=== PATIENT | female | born 1965 | race African-American/Black ===

== ENCOUNTER 2018-07-10 17:09 | Emergency (ER) | payer MEDICAID, OTHER ==
[~2018-07-10] VITALS: Ht 170.2 cm; Wt 72.6 kg
[2018-07-10 17:26] VITALS: BP 130/82
[2018-07-10 18:22] LABS: Urine Bacteria FEW /hpf (None Seen); Urine Blood Negative /uL (Negative); Urine Specific Gravity 1.002 (1.001-1.035); Urine WBC 2 /hpf (0 - 5)
== END 2018-07-11 02:15 | disposition left against medical advice (07) ==
LOC: EDBD 17:09 → MERGE 17:09 → ER 17:09
DX: R55 Syncope and collapse (principal); R53.1 Weakness; Z53.21 Procedure and treatment not carried out due to patient leaving prior to being seen by health care provider
CPT/HCPCS: 81001

== ENCOUNTER 2018-09-18 10:11 | Emergency (ER) | payer MEDICAID ==
[~2018-09-18] VITALS: Ht 165.1 cm; Wt 63.5 kg
[2018-09-18 10:23] VITALS: BP 103/74
[2018-09-18] MEDS ORDERED: LORazepam 0.5 MG TAB PO ONE (10:45)
[2018-09-18] MEDS ORDERED: ASPirin 81 mg TAB PO ONE (11:00)
[2018-09-18 11:35] LABS: Basophils # (auto) 0 uL; Basophils % (auto) 0.4 % (0.0-2.0); Eosinophils # (auto) 0 uL; Eosinophils % (auto) 0.6 % (0.0-7.0); Hematocrit 38.6 % (36.0-46.0); Hemoglobin 12.6 g/dL (12.2-16.2); Lymphocytes # (auto) 1.5 uL; Lymphocytes % (auto) 18.7 % (10.0-50.0); Mean Corpuscular Hgb Conc. 32.6 g/dL (32.0-36.0); Mean Corpuscular Volume 89.2 fL (80.0-100.0); Monocytes # (auto) 0.7 uL; Monocytes % (auto) 9.3 % (0.0-12.0); Neutrophils # (auto) 5.6 uL; Nucleated Red Blood Cells % 0.2 %; Platelet Count (auto) 323 10^3/uL (140-450); Red Blood Cells 4.33 10^6/uL (4.0-5.20); Red Cell Distribution Width 14.4 % (11.8-14.3); White Blood Cell 7.9 10^3/uL (4.4-10.8)
[2018-09-18 11:48] LABS: Albumin 3.3 g/dL (3.4-5.0); Anion Gap 6 (5-15); Blood Urea Nitrogen 8 mg/dL (7-18); Calcium 9.1 mg/dL (8.5-10.1); Carbon Dioxide 21 mmol/L (21-32); Chloride 114 mmol/L (98-107); Glucose 104 mg/dL (74-106); Potassium 3.5 mmol/L (3.5-5.1); Sodium 141 mmol/L (136-145)
[2018-09-18 11:51] LABS: Alanine Aminotransferase 39 U/L (13-56); Alkaline Phosphatase 101 U/L (45-117); Aspartate Aminotransferase 31 U/L (15-37); BUN/Creatinine Ratio 10.1; Bilirubin, Total 0.8 mg/dL (0.2-1.0); GFR African American > 60 mL/min; GFR Non-African American > 60 mL/min; Total Protein 7.7 g/dL (6.4-8.2)
[2018-09-18 11:52] LABS: INR 0.98 (0.9-1.15); Partial Thromboplastin Time 28.2 sec (23.78-33.04); Prothrombin Time 10.5 sec (9.27-12.13)
== END 2018-09-18 14:45 | disposition home or self-care (01) ==
LOC: ER 10:12
DX: R07.89 Other chest pain (principal); F41.9 Anxiety disorder, unspecified; F31.9 Bipolar disorder, unspecified; F20.9 Schizophrenia, unspecified; I10 Essential (primary) hypertension; Z88.8 Allergy status to other drugs, medicaments and biological substances
CPT/HCPCS: 36415; 71046; 80053; 84484; 85025; 85610; 85730; 93005

== ENCOUNTER → 2019-09-28 | Day surgery (SDC) | payer MEDICAID ==
[2019-09-25 11:29] LABS: Basophils # (auto) 0 uL; Basophils % (auto) 0.5 % (0.0-2.0); Eosinophils # (auto) 0 uL; Eosinophils % (auto) 0.8 % (0.0-7.0); Hematocrit 33.5 % (36.0-46.0); Lymphocytes # (auto) 1.3 uL; Lymphocytes % (auto) 23.6 % (10.0-50.0); Mean Corpuscular Hemoglobin 28.7 pg (28.0-32.0); Mean Corpuscular Hgb Conc. 32.7 g/dL (32.0-36.0); Mean Corpuscular Volume 87.8 fL (80.0-100.0); Monocytes # (auto) 0.4 uL; Monocytes % (auto) 6.6 % (0.0-12.0); Neutrophils # (auto) 3.8 uL; Neutrophils % (auto) 68.5 % (37.0-80.0); Platelet Count (auto) 243 10^3/uL (140-450); Red Blood Cells 3.82 10^6/uL (4.0-5.20); Red Cell Distribution Width 13.8 % (11.8-14.3); White Blood Cell 5.5 10^3/uL (4.4-10.8)
[2019-09-25 11:43] LABS: Urine Bacteria FEW /hpf (None Seen); Urine Blood TRACE /uL (Negative); Urine Mucus FEW (None Seen); Urine Specific Gravity 1.016 (1.001-1.035); Urine WBC 39 /hpf (0 - 5); Urine WBC Clumps PRESENT /hpf (None Seen)
[2019-09-25 11:52] LABS: Albumin 3.8 g/dL (3.4-5.0); Calcium 9.1 mg/dL (8.5-10.1); Potassium 3.8 mmol/L (3.5-5.1)
[2019-09-25 11:55] LABS: BUN/Creatinine Ratio 15.1; Bilirubin, Total 1.2 mg/dL (0.2-1.0); INR 1.01 (0.9-1.15); Partial Thromboplastin Time 26.5 sec (23.64-32.05); Total Protein 7.6 g/dL (6.4-8.2)
[~2019-09-28] VITALS: Ht 165.1 cm; Wt 63.5 kg
[~2019-09-28] MED LIST: ACCU-CHEK COMFORT CURVE STRIP VI ONE; CIPROFLOXACIN 400MG/200ML 200 ML IV ONE; GABA-339 PO; HYDR-531 PO; HYDR10TA26 PO; HYDROmorphone HCL 2 MG/ML VL IV PRN; IOHEXOL 300 MG/ML 100ML BOTTLE IJ ONE; LURA80TA PO; MIDAZOLAM HCL 1MG/1ML-2 ML VIAL ONE; MORP30TA PO; MORPHINE SULFATE 4 MG/ML SYR/VIAL IV PRN; ONDANSETRON HCL 4 MG/2 ML VIAL ONE; PREG150C PO; PROPOFOL 10 MG/ML 20 ML IV ONE; SODIUM CHLORIDE LOCK 10 ML ONE; fentaNYL CITRATE 100 MCG/2 ML VL IV PRN; fentaNYL CITRATE 100 MCG/2 ML VL ONE
[2019-09-28 11:12] VITALS: BP 141/85
== END | disposition home or self-care (01) ==
LOC: SUR 06:56
PROVIDERS: ATTEND Urology
DX: N20.0 Calculus of kidney (principal); K21.9 Gastro-esophageal reflux disease without esophagitis; E11.22 Type 2 diabetes mellitus with diabetic chronic kidney disease; I12.9 Hypertensive chronic kidney disease with stage 1 through stage 4 chronic kidney disease, or unspecified chronic kidney disease; N18.2 Chronic kidney disease, stage 2 (mild); D64.9 Anemia, unspecified; F31.9 Bipolar disorder, unspecified; G56.03 Carpal tunnel syndrome, bilateral upper limbs; M48.02 Spinal stenosis, cervical region; G89.29 Other chronic pain; D50.9 Iron deficiency anemia, unspecified; F25.0 Schizoaffective disorder, bipolar type; F41.9 Anxiety disorder, unspecified; Z88.1 Allergy status to other antibiotic agents; Z88.8 Allergy status to other drugs, medicaments and biological substances; Z98.890 Other specified postprocedural states; Z18.89 Other specified retained foreign body fragments; Z87.39 Personal history of other diseases of the musculoskeletal system and connective tissue; Z86.19 Personal history of other infectious and parasitic diseases; Z86.39 Personal history of other endocrine, nutritional and metabolic disease; Z87.898 Personal history of other specified conditions; Z79.899 Other long term (current) drug therapy
CPT/HCPCS: 36415; 52353; 74018; 80053; 81001; 82962; 85025; 85610; 85730; 88300; 93005; C1769; J0744; J2250; J2405; J2704; J3010; Q9967; 76000

== ENCOUNTER 2019-11-05 15:45 | Emergency (ER) | payer MEDICAID ==
[~2019-11-05] VITALS: Ht 165.1 cm; Wt 65.8 kg
[~2019-11-05 15:45] MED LIST changes: -ACCU-CHEK COMFORT CURVE STRIP VI ONE; -CIPROFLOXACIN 400MG/200ML 200 ML IV ONE; -HYDROmorphone HCL 2 MG/ML VL IV PRN; -IOHEXOL 300 MG/ML 100ML BOTTLE IJ ONE; -MIDAZOLAM HCL 1MG/1ML-2 ML VIAL ONE; -MORPHINE SULFATE 4 MG/ML SYR/VIAL IV PRN; -ONDANSETRON HCL 4 MG/2 ML VIAL ONE; -PROPOFOL 10 MG/ML 20 ML IV ONE; -SODIUM CHLORIDE LOCK 10 ML ONE; -fentaNYL CITRATE 100 MCG/2 ML VL IV PRN; -fentaNYL CITRATE 100 MCG/2 ML VL ONE
[2019-11-05] MEDS ORDERED: diphenhdrAMINE HCL 50 MG/1 ML VL IM ONE (16:15)
[2019-11-05] MEDS ORDERED: LORazepam 2MG/ML-1ML VIAL IM ONE (16:15)
[2019-11-05 16:38] VITALS: BP 195/109
== END 2019-11-05 17:31 | disposition home or self-care (01) ==
LOC: ER 15:45
DX: M26.609 Unspecified temporomandibular joint disorder, unspecified side (principal); F41.9 Anxiety disorder, unspecified; M62.838 Other muscle spasm; G24.9 Dystonia, unspecified; R51 Headache; I10 Essential (primary) hypertension; Z90.49 Acquired absence of other specified parts of digestive tract; Z88.1 Allergy status to other antibiotic agents; Z88.8 Allergy status to other drugs, medicaments and biological substances
CPT/HCPCS: 70486; 96372; 99284; J1200; J2060

== ENCOUNTER 2021-09-21 12:33 | Emergency (ER) | payer MEDICAID ==
[~2021-09-21] VITALS: Ht 165.1 cm; Wt 64.4 kg
[2021-09-21 13:49] LABS: Basophils # (auto) 0 10 ^3/uL (0-0.2); Basophils % (auto) 0.5 % (0.0-2.0); Eosinophils # (auto) 0 10 ^3/uL (0-0.8); Eosinophils % (auto) 0.8 % (0.0-7.0); Hematocrit 37.7 % (36.0-46.0); Hemoglobin 12.5 g/dL (12.2-16.2); Lymphocytes # (auto) 0.9 10 ^3/uL (0.4-5.4); Lymphocytes % (auto) 18.2 % (10.0-50.0); Mean Corpuscular Hemoglobin 28.5 pg (28.0-32.0); Mean Corpuscular Hgb Conc. 33.1 g/dL (32.0-36.0); Monocytes # (auto) 0.3 10 ^3/uL (0-1.3); Monocytes % (auto) 4.9 % (0.0-12.0); Neutrophils # (auto) 3.9 10 ^3/uL (1.6-8.6); Neutrophils % (auto) 75.6 % (37.0-80.0); Nucleated Red Blood Cells % 0.1 %; Red Blood Cells 4.39 10^6/uL (4.0-5.20); Red Cell Distribution Width 13.3 % (11.8-14.3); White Blood Cell 5.2 10^3/uL (4.4-10.8)
[2021-09-21 14:06] LABS: Albumin 3.8 g/dL (3.4-5.0); Calcium 9.7 mg/dL (8.5-10.1)
[2021-09-21 14:12] LABS: BUN/Creatinine Ratio 13.6; Bilirubin, Total 0.5 mg/dL (0.2-1.0); Total Protein 8.1 g/dL (6.4-8.2)
[2021-09-21 14:35] VITALS: BP 108/68
== END 2021-09-21 14:38 | disposition home or self-care (01) ==
LOC: ER 12:38
DX: R07.89 Other chest pain (principal); E11.9 Type 2 diabetes mellitus without complications; E78.5 Hyperlipidemia, unspecified; I10 Essential (primary) hypertension; Z90.49 Acquired absence of other specified parts of digestive tract; Z88.1 Allergy status to other antibiotic agents
CPT/HCPCS: 36415; 71046; 80053; 84484; 85025; 96372

== ENCOUNTER 2025-03-18 12:08 | Inpatient (IN) | payer MEDICARE, MEDICAID ==
[~2025-03-18] VITALS: Ht 165.1 cm; Wt 64.6 kg
[~2025-03-18 12:08] MED LIST changes: +HYDR-2792 PO; -HYDR10TA26 PO; -LURA80TA PO; +LURA80TA2 PO
--- NOTE | 2025-03-18 12:16 | ED.PDOC ---
HPI (NEURO) HPI Comments 59-year-old female brought in by EMS presents with a chief complaint of seizure- activity at home lasting about 1 minute. Per EMS, came home and found patient convulsing in bed with her eyes rolled back and foaming at the mouth. Patient has never had a seizure before. Patient does not remember the event. Patient had no trauma, oral trauma, or falls from the seizure. Patient is back to baseline mental status. Patient is on pain management from a lower back surgery that she had. PMHx: DM, Anxiety, Depression, Schizophrenia, HLD, HTN, Bipolar Disorder, chronic pain follows with pain management. PSHx: Lumbar Back Surgery, Hernia Repair, Cholecystectomy ELL[place]: seizure like. HPI: Poor Historian. No oral trauma, no incontinence, no history of seizure, back to her baseline on arrival. Patient does not recall what happened. No fall or trauma. This happened while she was in bed. This was witnessed by her .. Past Medical History: Past Surgical History: REVIEW OF SYSTEMS: CONSTITUTIONAL: Denies acute: fever, diaphoresis, chills, generalized weakness. HEAD: Denies acute: headache, photophobia Eyes: Denies acute: Double vision, vision loss, eye pain, eye discharge. EARS: Denies acute: tinnitus, hearing loss, ear discharge, ear pain, THROAT: Denies acute: sore throat, swelling, difficulty swallowing , pain with swallowing, change in voice. NECK: Denies acute: neck pain, neck swelling, stiff neck. HEART: Denies acute : chest pain, palpitations, LUNGS: Denies acute: SOB, wheezing, cough, hemoptysis ABDOMEN: Denies acute: abdominal pain, Nausea, Vomiting, diarrhea, melena , hematemesis, hematochezia SKIN: Denies acute: rash, redness, lesions, itchiness. EXTREMITIES: Denies acute: calf pain, numbness, tingling, weakness, denies pain in extremity. Denies acute: Low back pain. Neuro: Denies acute: focal neurological deficit, motor or sensory focal neurological deficit, , dizziness, change in mental status, loss of bowel or bladder function, cauda equina like symptoms. : Denies acute: dysuria, hematuria, flank pain, increase in urinary frequency. PSYCH: Denies acute: hallucination, suicidal ideation, homicidal ideation. FEMALE: Denies acute: abnormal vaginal bleeding, foul odor, unusual discharge. PHYSICAL EXAM: General: -----mild---acute distress, awake and alert. Head: normocephalic, atraumatic. Neck: supple, trachea is midline, no swelling. Throat: Normal phonation. Eyes:, no erythema, no purulent discharge, no proptosis, no icterus. Heart: regular rate, regular rhythm, no significant murmur appreciated. Lungs: no apparent respiratory distress, Able to speak in full sentences. No wheezing, no rhonchi, no crackles. No stridors Clear to auscultation bilaterally. Abdomen: non tender to palpation, non distended, soft, no guarding, no rebound, + bowel sounds. Neuro: Awake, Alert, oriented to name, self, situation, follows commands GCS=15. Speech is normal. Skin: no petechia, no purpura, no cyanosis, non-pale, not jaundice. Lower extremities: --no - Pitting edema no deformity, no focal swelling, no calf TTP. Makes eye contact. moves all four extremities. Face: no apparent facial droop. Stroke: finger to nose cerebellar testing is intact. No pronator drift. PERRLA, EOM-I CN 2-12 are grossly intact, No nystagmus. No nuchal rigidity, Kernig's sign, Brudzinski's sign, no meningeal signs. ED COURSE: DISCLAIMER: This medical document was created using an electronic medical record system with voice recognition software and computerized dictation system. Although this document has been carefully reviewed, there might still be some phonetic and typographical errors. Occasional wrong-word or "sound-alike" substitutions may have occurred due to the inherent limitations of voice recognition software. These areas are purely typographical due to imperfections of the software programs and do not reflect any compromise in the patient's medical care. Please read the chart carefully and recognize, using context, where these substitutions have occurred. 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 Was a procedure done?: No Differential Diagnosis (SZ) Seizure: Other (SEIZUREDDX include not limited to CVA, cerebellar ischemia/infarct, carotid stenosis, vertebral/carotid artery dissection,, vertebrobasillary insufficiency, Intracranial mass/infection/bleed, encephalopathy, elctrolyte abnormality, thyroid disease, multiple sclerosis, hypoglycemia, drug toxicity, cardiac arrhythmia, sub-theraputic anti-convulsion medications, known seizure disorder, pseudo-seizure.) X-Ray, Labs, Meds, VS Vital Signs Date Time Temp Pulse Resp B/P (MAP) Pulse Ox O2 Delivery O2 Flow Rate FiO2 03/18/25 15:18 97.5 71 18 165/105 (125) 100 97.5 03/18/25 13:08 79 19 100 Room Air 03/18/25 13:08 97.8 79 19 152/88 (109) 100 97.8 03/18/25 12:17 97.9 98 15 166/91 (116) 99 97.9 03/18/25 12:17 87 Lab Test 03/18/25 14:39 03/18/25 13:24 03/18/25 12:56 Range/Units Lactic Acid Level 3.6 *H 4.8 *H 0.4-2.0 mmol/L Troponin I High Sensitivity 6 5 </=34 ng/L Urine Color Light-yellow Yellow Urine Clarity Turbid H Clear Urine pH 7.5 5.0-9.0 Urine Specific [place] 1.009 1.001-1.035 Urine Protein Trace H Negative Urine Ketones Negative Negative Urine Blood Negative Negative /uL Urine Nitrite Negative Negative Urine Bilirubin Negative Negative Urine Urobilinogen Normal Negative mg/dL Urine Leukocyte Esterase Negative Negative /uL Urine RBC 1 0 - 4 /hpf Urine Microscopic WBC 1 0-5 /HPF Urine Squamous Epithelial Cells Few <5 /hpf Urine Bacteria None seen None Seen /hpf Urine Glucose Normal Normal mg/dL Urine Opiates Screen Neg NEGATIVE Urine Fentanyl Screen Neg NEGATIVE Urine Barbiturates Screen Neg NEGATIVE Urine Phencyclidine Screen Neg NEGATIVE Urine Amphetamines Screen Neg NEGATIVE Urine Benzodiazepines Screen Neg NEGATIVE Urine Cocaine Screen Neg NEGATIVE Urine Cannabinoids Screen Neg NEGATIVE White Blood Count 5.1 4.4-10.8 10^3/uL Red Blood Count 3.82 L 4.0-5.20 10^6/uL Hemoglobin 11.7 L 12.2-16.2 g/dL Hematocrit 35.4 L 36.0-46.0 % Mean Corpuscular Volume 92.6 80.0-100.0 fL Mean Corpuscular Hemoglobin 30.5 28.0-32.0 pg Mean Corpuscular Hemoglobin Concent 33.0 32.0-36.0 g/dL Red Cell Distribution Width 13.3 11.8-14.3 % Platelet Count 196 140-450 10^3/uL Mean Platelet Volume 9.1 6.9-10.8 fL Neutrophils (%) (Auto) 74.7 37.0-80.0 % Lymphocytes (%) (Auto) 18.2 10.0-50.0 % Monocytes (%) (Auto) 6.3 0.0-12.0 % Eosinophils (%) (Auto) 0.4 0.0-7.0 % Basophils (%) (Auto) 0.4 0.0-2.0 % Neutrophils # (Auto) 3.8 1.6-8.6 10 ^3/uL Lymphocytes # (Auto) 0.9 0.4-5.4 10 ^3/uL Monocytes # (Auto) 0.3 0-1.3 10 ^3/uL Eosinophils # (Auto) 0 0-0.8 10 ^3/uL Basophils # (Auto) 0 0-0.2 10 ^3/uL Nucleated Red Blood Cells 0.1 % Sodium Level 143 136-145 mmol/L Potassium Level 3.6 3.5-5.1 mmol/L Chloride Level 109 H 98-107 mmol/L Carbon Dioxide Level 18 L 20-31 mmol/L Anion Gap 16 H 5-15 Blood Urea Nitrogen 8 L 9-23 mg/dL Creatinine 0.80 0.550-1.02 mg/dL Glomerular Filtration Rate Calc 85 >90 mL/min BUN/Creatinine Ratio 10.0 10.0-20.0 Serum Glucose 119 H 74-106 mg/dL Calcium Level 9.8 8.7-10.4 mg/dL Magnesium Level 1.7 1.6-2.6 mg/dL Total Bilirubin 1.7 H 0.2-1.0 mg/dL Aspartate Amino Transferase (AST) 36 13-40 U/L Alanine Aminotransferase (ALT) 31 7-40 U/L Alkaline Phosphatase 68 46-116 U/L Total Protein 6.8 5.7-8.2 g/dL Albumin 4.3 3.2-4.8 g/dL Time of 1ST Reevaluation: 12:40 Reevaluation 1ST: Unchanged Patient Education/Counseling: Diagnosis, Treatment Family Education/Counseling: No Family Present Comments MDM: patient presented with the above HPI.---seizure---workup was initiated. patient was found with the above mentioned diagnosis. the following medications were ordered: please refer to order lists of meds and tests obtained by myself Dr. Hughes. Patient ED course and VS have been stabilized. Patient has been reassessed in the ED and remained in a stable condition. Pertinent incidental findings were discussed with the patient and/or family. Patient/family voices understanding and is agreeable with plan. Patient has been observed in the ED adequate length of time to insure improvement/stability. Escalation of care considered: Consideration of escalation to observation or admission Patient had no seizure activity here in the ED without any seizure medications. Patient was ADMITTED to the medicine team for further evaluation and treatment of their presentation. All the reports of any imaging studies that were ordered by myself were reviewed by myself. Departure 1 Departure Time of Disposition: 12:24 Impression: Primary Impression: Seizure-like activity Additional Impression: Elevated lactic acid level Disposition: ADMITTED INPATIENT Admit to: Tele Condition: Guarded Discharged With: Self Critical Care Note Critical Care Time?: No I personally scribed for DIANA HUGHES DO ([email or web address]) on 03/18/25 at 12:16. Electronically submitted by Juan Ramon Ignacio ([email or web address]). DIANA HUGHES DO Mar 18, 2025 12:16
[2025-03-18] MEDS: SODIUM CHLORIDE 0.9% 1,000 ML IV ONE ×2 (13:13→13:43)
[2025-03-18 13:14] LABS: Hematocrit 35.4 % (36.0-46.0); Hemoglobin 11.7 g/dL (12.2-16.2); Mean Corpuscular Hemoglobin 30.5 pg (28.0-32.0); Mean Corpuscular Volume 92.6 fL (80.0-100.0); Nucleated Red Blood Cells % 0.1 %
[2025-03-18 13:31] LABS: Alanine Aminotransferase 31 U/L (7-40); Albumin 4.3 g/dL (3.2-4.8); Alkaline Phosphatase 68 U/L (46-116); Anion Gap 16 (5-15); BUN/Creatinine Ratio 10.0 (10.0-20.0); Calcium 9.8 mg/dL (8.7-10.4); Magnesium 1.7 mg/dL (1.6-2.6); Potassium 3.6 mmol/L (3.5-5.1); Sodium 143 mmol/L (136-145); Total Protein 6.8 g/dL (5.7-8.2)
[2025-03-18 13:32] LABS: Bilirubin, Total 1.7 mg/dL (0.2-1.0); Blood Urea Nitrogen 8 mg/dL (9-23); Carbon Dioxide 18 mmol/L (20-31); Chloride 109 mmol/L (98-107); Glucose 119 mg/dL (74-106)
[2025-03-18 13:33] LABS: Lactic Acid w/Reflex 4.8 mmol/L (0.4-2.0)
--- NOTE | 2025-03-18 13:40 | DVH ---
INDICATION: SEIZURE LIKE ACTIVITY TECHNIQUE: Frontal view of the chest. COMPARISON: None FINDINGS: . The heart and mediastinal contours are grossly unremarkable. There is no evidence of pleural disea se. The lungs are clear. The bony structures of the chest are intact without fracture. IMPRESSION: 1. No evidence of acute disease.
[2025-03-18 15:37] LABS: Urine Protein, UAD TRACE (Negative)
[2025-03-18 15:38] LABS: Amphetamine Screen, Urine Neg (NEGATIVE)
[2025-03-18 15:39] LABS: Barbiturate Scree,Urine Neg (NEGATIVE); Benzodiazephine Screen, Urine Neg (NEGATIVE); Cannabinoid Screen, Urine Neg (NEGATIVE); Cocaine Screen, Urine Neg (NEGATIVE); Opiate Scree,Urine Neg (NEGATIVE); Phencyclidine Screen, Urine Neg (NEGATIVE)
[2025-03-18] MEDS ORDERED: ACETAMINOPHEN 325 MG TAB PO PRN (16:45)
[2025-03-18] MEDS ORDERED: ONDANSETRON HCL 4 MG/2 ML VIAL IV PRN (16:45)
--- NOTE | 2025-03-18 16:48 | DVHHP2 ---
History of Present Illness Reason for Visit: SEIZURE History of Present Illness 59-year-old female presents for evaluation of seizure activity. Patient is lb reports patient having a seizure-like episode where she was shaking and her eyes rolled back lasting approximately 1 minute. Patient is currently alert oriented x4. Does not recall any of the events. No oral trauma no incontinence. No previous history of seizures. Currently denies headache or blurred vision. No unilateral weakness. No fever or chills. No other acute complaints reported. Past Medical History Schizophrenia, dyslipidemia, hypertension, bipolar, diabetes mellitus, depression Past Surgical History Back surgery, hernia repair Family History Noncontributory Smoke: No ALCOHOL: none Drugs: None Lives: with Family Review of Systems Review of Systems Review of systems are currently negative otherwise addressed in HPI. Allergies: Coded Allergies: Amoxicillin (Verified Allergy, Unknown, 09/25/19) Atorvastatin (Verified Allergy, Unknown, 09/25/19) Lisinopril (Verified Allergy, Unknown, 09/25/19) Medications Current Medications Medications Dose Ordered Sig/Murray Route Start Time Stop Time Status Last Admin Dose Admin Nifedipine 30 mg DAILY PO 03/19/25 10:00 UNV Quetiapine Fumarate 200 mg HS PO 03/18/25 22:00 UNV Divalproex Sodium 500 mg DAILY PO 03/19/25 10:00 UNV Gabapentin 600 mg TID PO 03/18/25 22:00 UNV Hydralazine HCl 25 mg Q12HR PO 03/18/25 22:00 UNV Losartan Potassium 50 mg DAILY PO 03/19/25 10:00 UNV Hydrochlorothiazide 12.5 mg DAILY PO 03/19/25 10:00 UNV Acetaminophen/ Hydrocodone Bitart 1 tab Q4HP PRN PO 03/18/25 16:45 UNV Ondansetron HCl 4 mg Q4HP PRN IV 03/18/25 16:45 UNV Enoxaparin Sodium 40 mg DAILY SC 03/19/25 10:00 UNV Acetaminophen 650 mg Q6HP PRN PO 03/18/25 16:45 UNV Exam Vital Signs Vital Signs Date Time Temp Pulse Resp B/P (MAP) Pulse Ox O2 Delivery O2 Flow Rate FiO2 03/18/25 15:18 97.5 71 18 165/105 (125) 100 97.5 03/18/25 13:08 Room Air Exam Gen: 59-year-old female in no apparent distress. Skin: Warm, dry, normal color and texture, no rash. HEENT: Normocephalic atraumatic, mucous membranes moist and pink. Neck: Cervical and supraclavicular nodes normal without enlargement, trachea is midline, thyroid gland is normal without masses. Pulmonary: Clear to auscultation and percussion bilaterally. Cardiac: Regular rate and rhythm. No murmur Abdomen: Soft, nontender, nondistended, bowel sounds present all 4 quadrants, no guarding, no rigidity, no organomegaly. Extremities: No cyanosis, clubbing, no edema Neuro: Cranial nerves II through XII grossly intact, normal affect and speech, no focal motor deficits. Labs/Xrays Labs Test 03/18/25 16:26 03/18/25 13:24 03/18/25 12:56 Range/Units Urine Color Light-yellow Yellow Urine Clarity Turbid H Clear Urine pH 7.5 5.0-9.0 Urine Specific [place] 1.009 1.001-1.035 Urine Protein Trace H Negative Urine Ketones Negative Negative Urine Blood Negative Negative /uL Urine Nitrite Negative Negative Urine Bilirubin Negative Negative Urine Urobilinogen Normal Negative mg/dL Urine Leukocyte Esterase Negative Negative /uL Urine RBC 1 0 - 4 /hpf Urine Microscopic WBC 1 0-5 /HPF Urine Squamous Epithelial Cells Few <5 /hpf Urine Bacteria None seen None Seen /hpf Urine Glucose Normal Normal mg/dL Urine Opiates Screen Neg NEGATIVE Urine Fentanyl Screen Neg NEGATIVE Urine Barbiturates Screen Neg NEGATIVE Urine Phencyclidine Screen Neg NEGATIVE Urine Amphetamines Screen Neg NEGATIVE Urine Benzodiazepines Screen Neg NEGATIVE Urine Cocaine Screen Neg NEGATIVE Urine Cannabinoids Screen Neg NEGATIVE White Blood Count 5.1 4.4-10.8 10^3/uL Red Blood Count 3.82 L 4.0-5.20 10^6/uL Hemoglobin 11.7 L 12.2-16.2 g/dL Hematocrit 35.4 L 36.0-46.0 % Mean Corpuscular Volume 92.6 80.0-100.0 fL Mean Corpuscular Hemoglobin 30.5 28.0-32.0 pg Mean Corpuscular Hemoglobin Concent 33.0 32.0-36.0 g/dL Red Cell Distribution Width 13.3 11.8-14.3 % Platelet Count 196 140-450 10^3/uL Mean Platelet Volume 9.1 6.9-10.8 fL Neutrophils (%) (Auto) 74.7 37.0-80.0 % Lymphocytes (%) (Auto) 18.2 10.0-50.0 % Monocytes (%) (Auto) 6.3 0.0-12.0 % Eosinophils (%) (Auto) 0.4 0.0-7.0 % Basophils (%) (Auto) 0.4 0.0-2.0 % Neutrophils # (Auto) 3.8 1.6-8.6 10 ^3/uL Lymphocytes # (Auto) 0.9 0.4-5.4 10 ^3/uL Monocytes # (Auto) 0.3 0-1.3 10 ^3/uL Eosinophils # (Auto) 0 0-0.8 10 ^3/uL Basophils # (Auto) 0 0-0.2 10 ^3/uL Nucleated Red Blood Cells 0.1 % Sodium Level 143 136-145 mmol/L Potassium Level 3.6 3.5-5.1 mmol/L Chloride Level 109 H 98-107 mmol/L Carbon Dioxide Level 18 L 20-31 mmol/L Anion Gap 16 H 5-15 Blood Urea Nitrogen 8 L 9-23 mg/dL Creatinine 0.80 0.550-1.02 mg/dL Glomerular Filtration Rate Calc 85 >90 mL/min BUN/Creatinine Ratio 10.0 10.0-20.0 Serum Glucose 119 H 74-106 mg/dL Calcium Level 9.8 8.7-10.4 mg/dL Magnesium Level 1.7 1.6-2.6 mg/dL Total Bilirubin 1.7 H 0.2-1.0 mg/dL Aspartate Amino Transferase (AST) 36 13-40 U/L Alanine Aminotransferase (ALT) 31 7-40 U/L Alkaline Phosphatase 68 46-116 U/L Total Protein 6.8 5.7-8.2 g/dL Albumin 4.3 3.2-4.8 g/dL SEPSIS Sepsis Screen Date sepsis recognized/suspect: Mar 18, 2025 Time Sepsis recognized/suspect: 1214 Recent Procedure: No On Antibiotic Therapy: No Respiratory Rate >20: No Heart Rate >90: Yes Temp<36 C (96.8 F) or >38.3 C: No SBP <90 or MAP <65 mmHG: No New Acute Mental Status Change: No Is the patient on CPAP, BIPAP,: No 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 ) Seizure Precautions (03/18/25 ) Electrocardigram (03/18/25 12:11) Troponin-I Hs (03/18/25 15:11) Head Without Contrast (03/18/25 12:17) Chest Portable (03/18/25 12:17) Lactic Acid W/ Reflex Order (03/18/25 15:00) Admit (03/18/25 15:23) Nifedipine Er (Procardia Xl (Time-Releas (03/19/25 10:00) Quetiapine Fumarate Tablet (Seroquel Tab (03/18/25 22:00) Divalproex Dr Tablet (Depakote "Dr" Tabl (03/19/25 10:00) Gabapentin Capsule (Neurontin Capsule) (03/18/25 22:00) Hydralazine Hcl Tablet (Apresoline Table (03/18/25 22:00) Losartan Tablet (Cozaar Tablet) (03/19/25 10:00) Hydrochlorothiazide Tablet (Hydrochlorot (03/19/25 10:00) * Neurology Consult (03/18/25 16:34) Brain Head Wo Contrast (03/18/25 16:34) Hydrocodone-Acet 5/325mg Tab (Cades 5/32 (03/18/25 16:45) Ondansetron Hcl (Zofran) (03/18/25 16:45) Enoxaparin Sodium (Lovenox) (03/19/25 10:00) Complete Blood Count (03/19/25 04:00) Comprehensive Metabolic Panel (03/19/25 04:00) Cardiac Diet-2gna,Lofat,Lochol (03/18/25 Dinner) Condition: Stable (03/18/25 16:34) Acetaminophen Tablet (Tylenol Tablet) (03/18/25 16:45) Bedrest With Bathroom Privileg (03/18/25 16:34) Blood Culture (03/18/25 16:34) Vital Signs Date Time Temp Pulse Resp B/P (MAP) Pulse Ox O2 Delivery O2 Flow Rate FiO2 03/18/25 15:18 97.5 71 18 165/105 (125) 100 97.5 03/18/25 13:08 79 19 100 Room Air 03/18/25 13:08 97.8 79 19 152/88 (109) 100 97.8 03/18/25 12:17 97.9 98 15 166/91 (116) 99 97.9 03/18/25 12:17 87 Laboratory Tests Test 03/18/25 12:56 03/18/25 14:39 03/18/25 16:26 Lactic Acid Level 4.8 mmol/L (0.4-2.0) *H 3.6 mmol/L (0.4-2.0) *H Pending White Blood Count 5.1 10^3/uL (4.4-10.8) Medications Medications Dose Ordered Sig/Murray Route Start Time Stop Time Status Last Admin Dose Admin Sodium Chloride 1,000 ml @ 1,000 mls/hr Q1H ONCE IV 03/18/25 12:15 03/18/25 13:14 DC 03/18/25 13:13 1,000 MLS/HR Sodium Chloride 1,000 ml @ 1,000 mls/hr Q1H ONCE IV 03/18/25 13:45 03/18/25 14:44 DC 03/18/25 13:43 1,000 MLS/HR Assessment/Plan Assessment/Plan Assessment Seizure activity, new onset Lactic acidosis Accelerated hypertension Plan Admit the patient to [facility] to the hospitalist Nephrology consultation MRI of the brain pending Resume home medications Continue treatment per orders. Plan discussed with: Patient My Orders Orders - FABIOLA MELCHOR AGACNP Procedure Category Date Status Time Admit ADMIT 03/18/25 Transmitted 15:23 Nifedipine Er PHA 03/19/25 Logged (Procardia Xl 10:00 Quetiapine Fumarate PHA 03/18/25 Logged Tablet (Seroquel Tab 22:[address] Tablet PHA 03/19/25 Logged (Depakote "Dr" Tabl 10:00 Gabapentin Capsule PHA 03/18/25 Logged (Neurontin Capsule) 22:00 Hydralazine Hcl PHA 03/18/25 Logged Tablet (Apresoline 22:00 Losartan Tablet PHA 03/19/25 Logged (Cozaar Tablet) 10:00 Hydrochlorothiazide PHA 03/19/25 Logged Tablet (Hydrochlorot 10:00 * Neurology Consult CONS 03/18/25 Transmitted 16:34 Brain Head Wo Contrast MRI 03/18/25 Logged 16:34 Hydrocodone-Acet PHA 03/18/25 Logged 5/325mg Tab (Cades 16:45 Ondansetron Hcl PHA 03/18/25 Logged (Zofran) 16:45 Enoxaparin Sodium PHA 03/19/25 Logged (Lovenox) 10:00 Complete Blood Count LAB 03/19/25 Verified 04:00 Comprehensive LAB 03/19/25 Verified Metabolic Panel 04:00 Cardiac DIET 03/18/25 Transmitted Diet-2gna,Lofat,Lochol Dinner Condition: Stable ANNA 03/18/25 In Process 16:34 Acetaminophen Tablet PHA 03/18/25 Logged (Tylenol Tablet) 16:45 Bedrest With Bathroom ANNA 03/18/25 In Process Privileg 16:34 Blood Culture JOSE 03/18/25 Uncollected 16:34 Date of Service: Mar 18, 2025 Billing Provider: FABIOLA MELCHOR Common Visit Codes: [id number] INP/OBS CARE (HIGH) FABIOLA MELCHOR Mar 18, 2025 16:48
[2025-03-18 17:44] VITALS: BP 151/99; PULSE 69; RESP 17; TEMP 97.5; O2SAT 100
--- NOTE | 2025-03-18 18:46 | ECG ---
[facility] Test Date: 2025-03-18 Test Time: 12:15:23 Pat Name: SINDY ELLINGTON Department: ED Room: 0240 A Gender: F [employer] Developer: faith : 1965 Requested By: DIANA PETIT Order Number: [id number] Reading MD: Ronaldo Bueno Measurements Intervals [place] Rate: 87 P: 30 NV: 157 QRS: 9 QRSD: 82 T: 4 QT: 390 QTc: 470 Interpretive Statements Sinus rhythm Probable left atrial enlargement Low voltage, precordial leads Electronically Signed On 03-24-2025 17:41:57 PDT by Ronaldo Bueno Please click the below link to view image of tracing.
[2025-03-18] MEDS: HYDROcodone-ACET 5/325MG TAB PO PRN (19:07)
[2025-03-18 20:00] VITALS: PULSE 82; RESP 20; O2SAT 99
[2025-03-18 21:00] VITALS: BP 138/82; PULSE 82; RESP 20; TEMP 98.2; O2SAT 99
--- NOTE | 2025-03-18 21:28 | DVH ---
Procedure: CT HEAD WITHOUT CONTRAST Study Date and Requested Time: 03/18/2025 01:09 PM History: SEIZURE LIKE ACTIVITY Comparison: None Dose: CTDI: 48.84 mGy DLP: 685.54 mGycm Technique: Multiplanar images obtained through the brain without intravenous contrast. Findings: Mild frontoparietal predominant brain Atrophy. Mild chronic small vessel ischemic changes. No hemorrhages, masses, mass effect, midline shift, herniation or cytotoxic edema following a large v ascular territory. No intra-axial or extra-axial fluid collections. No evidence of hydrocephalus. The basal cisterns are patent. The pituitary gland, sella and parasellar regions are unremarkable. The cerebellar tonsils are in nor mal position. The cerebellum is unremarkable. The partially visualized orbits and globes are unremarkable. Mild mucoperiosteal thickening of the po sterior ethmoid air cells. Otherwise, paranasal sinuses and mastoids are clear. There are no worriso me calvarial lesions. Impression: No evidence of acute intracranial abnormality. If symptoms persist, consider MRI for further evaluati on.
[2025-03-18] MEDS: GABAPENTIN 300 MG CAP PO SCH (22:23)
[2025-03-19] VITALS (7 sets, daily range): BP systolic 98–127; BP diastolic 64–84; PULSE 80–95; RESP 16–22; TEMP 97.7–98.2; O2SAT 98–100
[2025-03-19 07:03] LABS: Alanine Aminotransferase 26 U/L (7-40); Albumin 4.1 g/dL (3.2-4.8); Alkaline Phosphatase 65 U/L (46-116); Anion Gap 11 (5-15); BUN/Creatinine Ratio 10.1 (10.0-20.0); Calcium 9.4 mg/dL (8.7-10.4); Carbon Dioxide 23 mmol/L (20-31); Glucose 92 mg/dL (74-106); Potassium 3.5 mmol/L (3.5-5.1); Sodium 142 mmol/L (136-145); Total Protein 6.4 g/dL (5.7-8.2)
[2025-03-19 07:09] LABS: Bilirubin, Total 1.9 mg/dL (0.2-1.0); Blood Urea Nitrogen 8 mg/dL (9-23); Chloride 108 mmol/L (98-107)
[2025-03-19] MEDS: LACTATED RINGER'S 1,000 ML IV SCH (09:00)
[2025-03-19] MEDS: LOSARTAN POTASSIUM 50 MG TAB PO SCH (09:05)
[2025-03-19] MEDS: ENOXAPARIN SOD 40 MG/0.4 ML SYRINGE SC SCH (09:09)
[2025-03-19] MEDS: hydroCHLOROthiazide 25 MG TAB PO SCH (09:12)
--- NOTE | 2025-03-19 09:12 | DVHINCON2 ---
Date of service: Mar 19, 2025 Referring Physician Juan Manuel Reason for Consultation Seizure History of Present Illness Ms. Shah is a 59 years old right-handed female with a history of hypertension, diabetes, dyslipidemia, schizophrenia, anxiety, depression, bipolar disorder, chronic pain syndrome, she was brought to the [facility] on 03/18/2025 with a chief complaint of seizure activity. At this time, she is bette rt, fully oriented, he provided the following history On 03/18/2025, she remember watching TV in the bed, but the next memory was waking up in bed with her by her side, but she could not recognize her , did not really place, and a small bite in the left lip. Her reports seizure-like activity for about 1 minutes, with eyes rolling back, foaming at the mouth. She woke with diffuse muscle aching on 03/19/2025. She has never had similar problems previously, she denies history of seizure, she has no symptoms of olfactory/gustatory hallucination, no family history of seizure disorder She reports no sleeping day and night since childhood, she did not feel sleep the night before her seizure-like activity. Her home medication including De pakote, gabapentin, and she reports a good compliance UDS, 03/18/2025: Unremarkable UDS, 03/18/2025: Negative WBC/HB/PLT/MCV, 03/18/25: 5.1/11.7/196/92.6 Lactic acid, 03/18/2025: 4.8, 3.6 HCO3, 03/18/2025: 18, 23 TBI/AST/ALT/AP, 03/18/2025: 1.7/36//38, 03/19/2025: 1.9// CT head, 03/18/2025: No evidence of acute intracranial abnormality. If symptoms persist, consider MRI for further evaluation. Past Medical History Hypertension, diabetes, dyslipidemia, schizophrenia, anxiety, depression, bipolar disorder, chronic pain syndrome Past Surgical History Cholecystectomy, hernia repair, lumbar spine surgery Family History: Cardiovascular disease G8 FATHER Diabetes mellitus G8 MOTHER G8 FATHER FH: lung cancer G8 MOTHER Hypertension G8 MOTHER G8 FATHER Family History Hypertension, diabetes, heart disease, cancer Social History She has no history of tobacco smoking, drug or alcohol abuse Allergies: Coded Allergies: Amoxicillin (Verified Allergy, Unknown, 09/25/19) Atorvastatin (Verified Allergy, Unknown, 09/25/19) Lisinopril (Verified Allergy, Unknown, 09/25/19) Home Meds Reported Medications Lurasidone Hcl (LATUDA) 80 Mg Tab, 1 TAB PO HS, #30 TAB 2 Refills 09/25/19 Pregabalin (Lyrica) 150 Mg Cap, 1 CAP PO BID, #60 CAP 5 Refills 09/25/19 Hydralazine Hcl (Hydralazine Hcl) 10 Mg Tab, 10 MG PO TID for 30 Days, MG 09/25/19 Morphine Sulfate (Morphine Sulfate) 30 Mg Tab, 1 TAB PO BID, #60 TAB 09/25/19 Hydrocodone-Acetaminophen ([place] 10-325 mg) 1 Tab Tab, 1 TAB PO TID, TAB 09/25/19 Gabapentin (Gabapentin) 600 Mg Tab, 600 MG PO TID for 30 Days, MG 09/25/19 Current Medications Current Medications Medications (Trade) Dose Ordered Sig/Murray Route PRN Reason Start Time Stop Time Status Last Admin Nifedipine (Procardia Xl (Time-Release)) 30 mg DAILY PO 03/19/25 10:00 Quetiapine Fumarate (SEROquel TABLET) 200 mg HS PO 03/18/25 22:00 03/18/25 22:23 Divalproex Sodium (Depakote "Dr" Tablet) 500 mg DAILY PO 03/19/25 10:00 Gabapentin (Neurontin Capsule) 600 mg TID PO 03/18/25 22:00 03/19/25 06:29 Hydralazine HCl (Apresoline Tablet) 25 mg Q12HR PO 03/18/25 22:00 03/18/25 22:24 Losartan Potassium (Cozaar Tablet) 50 mg DAILY PO 03/19/25 10:00 Hydrochlorothiazide (hydroCHLOROthiazide TABLET) 12.5 mg DAILY PO 03/19/25 10:00 Acetaminophen/ Hydrocodone Bitart ([place] 5/325MG Tab) 1 tab Q4HP PRN PO MODERATE PAIN (4-6 PAIN SCALE) 03/18/25 16:45 03/18/25 23:10 Ondansetron HCl (Zofran) 4 mg Q4HP PRN IV NAUSEA / VOMITING 03/18/25 16:45 Enoxaparin Sodium (Lovenox) 40 mg DAILY SC 03/19/25 10:00 Acetaminophen (Tylenol Tablet) 650 mg Q6HP PRN PO PAIN SCALE 1-3 OR TEMP>100.4 03/18/25 16:45 Lactated Ringer's 1,000 ml @ 75 mls/hr [id number] IV 03/19/25 09:00 UNV Review of Systems As above, the other systems are negative Vital Signs Vital Signs Date Time Temp Pulse Resp B/P (MAP) Pulse Ox O2 Delivery O2 Flow Rate FiO2 03/19/25 05:00 97.7 88 20 127/84 (98) 99 97.7 03/18/25 20:00 Room Air* 0 21 Physical Exam GENERAL EXAM: General: the patient is well developed and nourished. No acute distress. HEENT: Normocephalic, neck is supple, no carotid bruits. No mass. RESPIRATORY: Normal respiratory effort with symmetrical lung expansion. Lungs clear to auscultation. CARDIOVASCULAR: Regular rate and rhythm with no murmurs. S1, S2. ABDOMEN: Soft, nontender, normal bowel sound NEUROLOGICAL: MENTAL STATUS: Awake and alert. Oriented to person, place, time and general circumstances. Able to give personal history. The patient is aware of recent events SPEECH, LANGUAGE, HIGHER CORTICAL FUNCTION: no aphasia or dysathria. CRANIAL NERVES: #2: Intact visual wooten to confrontation. The optic discs were sharp. Retinal background was uniformly pink in appearance. There was no hemorrhages or exudates. #3,4,6: Pupils are equal, round and reactive. EOMs full and conjugate. Mild bilateral gaze evoked nystagmus. #5: Facial sensation intact in all three divisions bilaterally. Mandibular strength intact. #7: Facial muscles symmetrical and strength intact. #8: Hearing grossly normal to voice. #9,10: Uvula and soft palate rise in the midline. Swallow and voice are normal. #11: Trapezius and sternomastoid strength intact bilaterally. #12: Tongue midline. No fasciculations or atrophy. SENSATION: Sensation to touch and pinprick is normal. MOTOR: Normal tone in the upper and lower extremity. Normal muscle bulk. No fasciculations. No abnormal movements or posturing. Muscle strength of the major groups in the upper extremities is 5/5. Muscle strength of the major groups in the lower extremities is 5/5. REFLEXES: Deep tendon reflexes normal and symmetrical. No pathological reflexes. CEREBELLAR/COORDINATION: Finger to nose and heel to curry are normal bilaterally. GAIT/STATION: deferred. Labs/Diagnostic Data Labs Test 03/19/25 05:41 03/18/25 23:02 03/18/25 16:26 03/18/25 13:24 Range/Units Sodium Level 142 136-145 mmol/L Potassium Level 3.5 3.5-5.1 mmol/L Chloride Level 108 H 98-107 mmol/L Carbon Dioxide Level 23 20-31 mmol/L Anion Gap 11 5-15 Blood Urea Nitrogen 8 L 9-23 mg/dL Creatinine 0.79 0.550-1.02 mg/dL Glomerular Filtration Rate Calc 87 >90 mL/min BUN/Creatinine Ratio 10.1 10.0-20.0 Serum Glucose 92 74-106 mg/dL Calcium Level 9.4 8.7-10.4 mg/dL Total Bilirubin 1.9 H 0.2-1.0 mg/dL Aspartate Amino Transferase (AST) 31 13-40 U/L Alanine Aminotransferase (ALT) 26 7-40 U/L Alkaline Phosphatase 65 46-116 U/L Total Protein 6.4 5.7-8.2 g/dL Albumin 4.1 3.2-4.8 g/dL POC Glucose 138 H 70-106 mg/dl Lactic Acid Level 2.0 0.4-2.0 mmol/L Troponin I High Sensitivity 3 L </=34 ng/L Urine Color Light-yellow Yellow Urine Clarity Turbid H Clear Urine pH 7.5 5.0-9.0 Urine Specific Earth 1.009 1.001-1.035 Urine Protein Trace H Negative Urine Ketones Negative Negative Urine Blood Negative Negative /uL Urine Nitrite Negative Negative Urine Bilirubin Negative Negative Urine Urobilinogen Normal Negative mg/dL Urine Leukocyte Esterase Negative Negative /uL Urine RBC 1 0 - 4 /hpf Urine Microscopic WBC 1 0-5 /HPF Urine Squamous Epithelial Cells Few <5 /hpf Urine Bacteria None seen None Seen /hpf Urine Glucose Normal Normal mg/dL Urine Opiates Screen Neg NEGATIVE Urine Fentanyl Screen Neg NEGATIVE Urine Barbiturates Screen Neg NEGATIVE Urine Phencyclidine Screen Neg NEGATIVE Urine Amphetamines Screen Neg NEGATIVE Urine Benzodiazepines Screen Neg NEGATIVE Urine Cocaine Screen Neg NEGATIVE Urine Cannabinoids Screen Neg NEGATIVE Test 03/18/25 12:56 Range/Units Eosinophils (%) (Auto) 0.4 0.0-7.0 % Eosinophils # (Auto) 0 0-0.8 10 ^3/uL Basophils # (Auto) 0 0-0.2 10 ^3/uL Nucleated Red Blood Cells 0.1 % Magnesium Level 1.7 1.6-2.6 mg/dL Assessment New onset grand mal seizure, with no obvious trigger Chronic insomnia, likely related to her psychiatric disorder Inadequate sleep hygiene Plan/Recommendation Monitoring Supportive treatment Telemetry EEG MR brain scan Continue her Depakote and gabapentin Continue her quetiapine 200 mg at bedtime Ativan for seizure breakthrough Preventive seizure treatment is not indicated Will discuss with her about seizure related driving restriction Sleep hygiene tips discussed More recommendation per clinical course Prognosis: Poor This medical document was created using an electronic medical record system with Prepared [employer] dictation system. Although this document has been carefully reviewed, there may still be some phonetic and typographical errors. These areas are purely typographical due to imperfections of the software programs, and do not reflect any compromise in the patient's medical care. Plan discussed with: Patient, Other RADHA VALERA MD Mar 19, 2025 09:12
[2025-03-19] MEDS ORDERED: LORazepam 2MG/ML-1ML VIAL IV PRN ×2 (09:45)
--- NOTE | 2025-03-19 10:30 | DVHPNRES ---
Progress Note Date Seen: Mar 19, 2025 Resident Creating Document: MAGDI HUDDLESTON RESIDENT Medical Necessity Reason Pt with a Central, PICC or Fol: No Subjective Review of Systems Kim Shah is a 59-year-old female With past medical history of schizophrenia, bipolar disorder, depression, Prediabetic, hypertension, dyslipidemia , chronic back pain. She presented to the ER with a seizure like episode. she reports she does not remember anything about the incident. Her informed her that she was shaking, her tongue hanging and her eyes rolled back. She reports biting her left lip , resulting in minor injury. reports no incontinence. She reports being confused after the episode, unable to recognize her for a while. She reports chronic insomnia. Was unable to sleep the previous night. No history of seizures in past. No history of headache, blurry vision, fever, neck rigidity, olfactory hallucination, head injury, nausea, vomiting, diarrhea. She was examined at bedside, she is oriented x3. Does not recall any of the events. She complains of generalized pain and tenderness. Currently denies postictal confusion, headache or blurred vision. No new complaints. Neurology is on board. She will undergo MRI today. Past Medical History: Schizophrenia, bipolar disorder, depression, prediabetic, hypertension, dyslipidemia , chronic back pain Past Surgical History: Back surgery, hernia repair, cholecystectomy Personal history: Nonsmoker, nonalcoholic, no recreational drug use. She lives in a home. ROS: Constitutional: Denies weight loss, fever and chills. HEENT: Complains of lip biting. Denies changes in vision and hearing. Respiratory: Denies shortness of breath and cough Cardiovascular: Denies chest discomfort or palpitations GI: Denies abdominal pain, nausea, vomiting and diarrhea. : Denies dysuria and urinary frequency. Musculoskeletal: Denies myalgias and joint pain Skin: Denies rash and pruritus. Neurological: Denies dizziness, headache, vision or hearing problems. Objective vital signs Vital Sign Date Time Temp Pulse Resp B/P (MAP) Pulse Ox O2 Delivery O2 Flow Rate FiO2 03/19/25 09:12 115/77 03/19/25 05:00 97.7 88 20 99 97.7 03/18/25 20:00 Room Air* 0 21 Total Intake and Output 03/18/25 03/18/25 03/19/25 15:00 23:00 07:00 Intake Total 2000 ml 120 ml Balance 2000 ml 120 ml medications Current Medications Medications Dose Ordered Sig/Murray Route Start Time Stop Time Status Last Admin Dose Admin Nifedipine 30 mg DAILY PO 03/19/25 10:00 03/19/25 09:08 30 MG Quetiapine Fumarate 200 mg HS PO 03/18/25 22:00 03/18/25 22:23 200 MG Divalproex Sodium 500 mg DAILY PO 03/19/25 10:00 03/19/25 09:10 500 MG Gabapentin 600 mg TID PO 03/18/25 22:00 03/19/25 06:29 600 MG Hydralazine HCl 25 mg Q12HR PO 03/18/25 22:00 03/19/25 09:11 25 MG Losartan Potassium 50 mg DAILY PO 03/19/25 10:00 03/19/25 09:05 50 MG Hydrochlorothiazide 12.5 mg DAILY PO 03/19/25 10:00 03/19/25 09:12 12.5 MG Acetaminophen/ Hydrocodone Bitart 1 tab Q4HP PRN PO 03/18/25 16:45 03/19/25 09:10 1 TAB Ondansetron HCl 4 mg Q4HP PRN IV 03/18/25 16:45 Enoxaparin Sodium 40 mg DAILY SC 03/19/25 10:00 03/19/25 09:09 40 MG Acetaminophen 650 mg Q6HP PRN PO 03/18/25 16:45 Lactated Ringer's 1,000 ml @ 75 mls/hr [id number] IV 03/19/25 09:00 UNV Lorazepam 1 mg Q5MINP PRN IV 03/19/25 09:45 UNV Lorazepam 1 mg ONCE PRN IV 03/19/25 09:45 UNV Examination General: Patient alert and oriented in person, place and time. Patient following commands. HEENT: Normocephalic, atraumatic, moist mucous membranes Respiratory/pulmonary: Generalized tenderness in the chest area. Clear lungs bilaterally, no associated crackles or wheezes. Cardiovascular: Normal heart sounds S1 and S2 with no associated murmurs Abdomen: Generalized tenderness in the abdomen. Abdomen nondistended, there is no pain to palpation in any of the abdominal quadrants, no palpable masses. Extremities: There is no peripheral edema present at the lower extremities. Peripheral Pulses: 3+ Radial (R). 3+ Radial (L). 3+ Dorsalis pedis (R). 3+ Dorsalis pedis(L) Skin: No rashes or pruritus, there is no sacral edema present at this time. Neurological: Intact cranial nerves with no focal neurologic deficits. Normal power. laboratory and microbiology Laboratory Tests 03/19/25 05:41 Test 03/19/25 05:41 Range/Units Serum Glucose 92 74-106 mg/dL Problem List/Assessment/Plan Problem List/Assessment/Plan #Seizure activity, new onset #Lactic acidosis, resolved #Chronic insomnia -CT shows no significant abnormality. CXR shows no significant abnormality. -Labs show elevated lactic acid, total bilirubin. Her lactic acid went down from 4.8 to 2 today. Toxicology screen negative. -EKG shows changes reflecting left atrial enlargement -Neurology on board #Hypertension -Managed with hydrochlorothiazide, losartan, hydralazine as needed #Hyperbilirubinemia -Will monitor hepatic panel #Normocytic normochromic anemia, unspecified -Oral ferrous sulphate 325 mg daily on discharge #History of bipolar disorder #History of depression #History of schizophrenia -Continue home medications #Anemia, unspecified -Hemoglobin 11.7 Goals of care discussed with patient at bedside for more than 35 minutes Full code PCP Dr. Vasquez Plan discussed with Dr. Meehan Plan discussed with: Patient Date of Service: Mar 19, 2025 Billing Provider: SEPIDEH VALDEZ MD Common Visit Codes: [id number] INP/OBS CARE(HIGH) MAGDI HUDDLESTON RESIDENT Mar 19, 2025 10:30 SEPIDEH VALDEZ MD Mar 24, 2025 01:37
--- NOTE | 2025-03-19 10:46 | DVH ---
PROCEDURE: MRI BRAIN HEAD WO CONTRAST INDICATION: SEIZURE EXAM DATE: 03/19/2025 09:43 AM COMPARISON: None TECHNIQUE: MRI of the brain without intravenous contrast. FINDINGS: Diffusion weighted images of the brain demonstrate no evidence of acute infarction. There is no evidence of acute intracranial hemorrhage, extra-axial collection, mass effect, midline s hift, herniation or hydrocephalus. The ventricles, sulci and cisterns appear age appropriate. Mild to moderate changes of chronic microvascular ischemic disease. There are no signal abnormalities on the susceptibility weighted sequences. The major vascular flow voids are present. The visualized paranasal sinuses and mastoid air cells are clear. The surrounding soft tissues and o sseous structures are unremarkable. IMPRESSION: 1. No evidence of acute infarction, intracranial hemorrhage, mass effect or hydrocephalus. Mild-to-mo derate changes of chronic microvascular ischemic disease. HS:Y
[2025-03-19 12:06] LABS: Iron 44.0 ug/dL (50-170)
[2025-03-19 12:08] LABS: Hematocrit 32.3 % (36.0-46.0); Hemoglobin 10.7 g/dL (12.2-16.2); Mean Corpuscular Hemoglobin 31.2 pg (28.0-32.0); Mean Corpuscular Volume 94.0 fL (80.0-100.0); Nucleated Red Blood Cells % 0.1 %
[2025-03-19 12:09] LABS: Total Iron Binding Capacity 227.0 ug/dL (250-425)
[2025-03-19] MEDS ORDERED: KETOROLAC TROMETH 30 MG/ML 1ML VIAL ONE (15:00)
[2025-03-19 15:42] LABS: Urine Protein, UAD Negative (Negative)
[2025-03-20] VITALS (7 sets, daily range): BP systolic 101–131; BP diastolic 64–85; PULSE 84–103; RESP 16–19; TEMP 97.3–98.2; O2SAT 95–99
[2025-03-20 07:34] LABS: Hematocrit 28.2 % (36.0-46.0); Hemoglobin 9.5 g/dL (12.2-16.2); Mean Corpuscular Hemoglobin 31.8 pg (28.0-32.0); Mean Corpuscular Volume 94.1 fL (80.0-100.0); Nucleated Red Blood Cells % 0.2 %
[2025-03-20 07:38] LABS: Alanine Aminotransferase 20 U/L (7-40); Albumin 3.7 g/dL (3.2-4.8); Alkaline Phosphatase 68 U/L (46-116); Anion Gap 11 (5-15); BUN/Creatinine Ratio 9.8 (10.0-20.0); Bilirubin, Total 0.8 mg/dL (0.2-1.0); Calcium 9.8 mg/dL (8.7-10.4); Carbon Dioxide 23 mmol/L (20-31); Glucose 95 mg/dL (74-106); Sodium 141 mmol/L (136-145); Total Protein 6.0 g/dL (5.7-8.2)
[2025-03-20 07:39] LABS: Blood Urea Nitrogen 8 mg/dL (9-23); Chloride 107 mmol/L (98-107); Potassium 3.3 mmol/L (3.5-5.1)
[2025-03-20] MEDS: POTASSIUM EFFERVESENT TAB 25 MEQ GT ONE (10:30)
--- NOTE | 2025-03-20 14:49 | DVHPNRES ---
Progress Note Date Seen: Mar 20, 2025 Resident Creating Document: BONNIE JOYA RESIDENT Has the PT tested + for MRSA If YES, has PT been informed?: No Medical Necessity Reason Pt with a Central, PICC or Fol: No Subjective Review of Systems Kim Del Angel is a 59-year-old female With past medical history of schizophrenia, bipolar disorder, depression, Prediabetic, hypertension, dyslipidemia , chronic back pain. She presented to the ER with a seizure like episode. she reports she does not remember anything about the incident. Her informed her that she was shaking, her tongue hanging and her eyes rolled back. She reports biting her left lip , resulting in minor injury. reports no incontinence. She reports being confused after the episode, unable to recognize her for a while. She reports chronic insomnia. Was unable to sleep the previous night. No history of seizures in past. No history of headache, blurry vision, fever, neck rigidity, olfactory hallucination, head injury, nausea, vomiting, diarrhea. On 03/19. She was examined at bedside, she is oriented x3. Does not recall any of the events. She complains of generalized pain and tenderness. Currently denies postictal confusion, headache or blurred vision. No new complaints. Neurology is on board. She will undergo MRI today. 03/20/25: The patient was evaluated today, she reports felling better, denies headache, nausea, vomit, dizziness, or other complains. Vital signs within normal limits, labs showed hypokalemia 3.3meq/L that was corrected. Neurology is onboard, EEG was ordered. We will follow up with this results. ROS: Constitutional: Denies weight loss, fever and chills. HEENT: Complains of lip biting. Denies changes in vision and hearing. Respiratory: Denies shortness of breath and cough Cardiovascular: Denies chest discomfort or palpitations GI: Denies abdominal pain, nausea, vomiting and diarrhea. : Denies dysuria and urinary frequency. Musculoskeletal: Denies myalgias and joint pain Skin: Denies rash and pruritus. Neurological: Denies dizziness, headache, vision or hearing problems. Objective vital signs Vital Sign Date Time Temp Pulse Resp B/P (MAP) Pulse Ox O2 Delivery O2 Flow Rate FiO2 03/20/25 12:45 97.3 86 17 106/70 (82) 98 97.3 03/19/25 20:00 Room Air* 0 21 Total Intake and Output 03/19/25 03/19/25 03/20/25 15:00 23:00 07:00 Intake Total 1800 ml 840 ml Balance 1800 ml 840 ml medications Current Medications Medications Dose Ordered Sig/Murray Route Start Time Stop Time Status Last Admin Dose Admin Nifedipine 30 mg DAILY PO 03/19/25 10:00 03/20/25 09:25 30 MG Quetiapine Fumarate 200 mg HS PO 03/18/25 22:00 03/19/25 21:53 200 MG Divalproex Sodium 500 mg DAILY PO 03/19/25 10:00 03/20/25 09:24 500 MG Gabapentin 600 mg TID PO 03/18/25 22:00 03/20/25 06:46 600 MG Hydralazine HCl 25 mg Q12HR PO 03/18/25 22:00 03/20/25 09:26 25 MG Losartan Potassium 50 mg DAILY PO 03/19/25 10:00 03/20/25 09:26 50 MG Hydrochlorothiazide 12.5 mg DAILY PO 03/19/25 10:00 03/20/25 09:25 12.5 MG Acetaminophen/ Hydrocodone Bitart 1 tab Q4HP PRN PO 03/18/25 16:45 03/19/25 17:57 1 TAB Ondansetron HCl 4 mg Q4HP PRN IV 03/18/25 16:45 Enoxaparin Sodium 40 mg DAILY SC 03/19/25 10:00 03/20/25 09:27 40 MG Acetaminophen 650 mg Q6HP PRN PO 03/18/25 16:45 Lactated Ringer's 1,000 ml @ 75 mls/hr [id number] IV 03/19/25 09:00 03/19/25 21:50 75 MLS/HR Lorazepam 1 mg Q5MINP PRN IV 03/19/25 09:45 Lorazepam 1 mg ONCE PRN IV 03/19/25 09:45 Examination General: Patient alert and oriented in person, place and time. Patient following commands. HEENT: Normocephalic, atraumatic, moist mucous membranes Respiratory/pulmonary: Generalized tenderness in the chest area. Clear lungs bilaterally, no associated crackles or wheezes. Cardiovascular: Normal heart sounds S1 and S2 with no associated murmurs, no tachycardic. Abdomen: Generalized tenderness in the abdomen. Abdomen nondistended, there is no pain to palpation in any of the abdominal quadrants, no palpable masses. Extremities: There is no peripheral edema present at the lower extremities. Peripheral Pulses: 3+ Radial (R). 3+ Radial (L). 3+ Dorsalis pedis (R). 3+ Dorsalis pedis(L) Skin: No rashes or pruritus, there is no sacral edema present at this time. Neurological: Intact cranial nerves with no focal neurologic deficits. Normal power. laboratory and microbiology Laboratory Tests 03/20/25 05:29 Test 03/20/25 05:29 Range/Units Serum Glucose 95 74-106 mg/dL Problem List/Assessment/Plan Problem List/Assessment/Plan #Seizure activity, new onset #Lactic acidosis, resolved #Chronic insomnia -CT shows no significant abnormality. CXR shows no significant abnormality. -Labs show elevated lactic acid, total bilirubin. Her lactic acid went down from 4.8 to 2 today. Toxicology screen negative. -EKG shows changes reflecting left atrial enlargement -Neurology on board #Hypertension -Managed with hydrochlorothiazide, losartan, hydralazine as needed #Hyperbilirubinemia -Will monitor hepatic panel #Normocytic normochromic anemia, unspecified -Oral ferrous sulphate 325 mg daily on discharge #History of bipolar disorder #History of depression #History of schizophrenia -Continue home medications #Anemia, unspecified -Hemoglobin 11.7 Goals of care discussed with patient at bedside for more than 35 minutes Code status: Full code PCP Dr. Vasquez Plan discussed with Dr. Meehan Plan discussed with: Patient, patient agrees with the plan. Plan discussed with: Patient My Orders My Orders Orders - BONNIE JOYA Procedure Category Date Status Time Complete Blood Count LAB 03/21/25 Verified 04:00 Basic Metabolic Panel LAB 03/21/25 Verified 04:00 Date of Service: Mar 20, 2025 Billing Provider: SEPIDEH VALDEZ MD Common Visit Codes: [id number] INP/OBS CARE(HIGH) BONNIE JOYA Mar 20, 2025 14:49 SEPIDEH VALDEZ MD Mar 24, 2025 01:44
--- NOTE | 2025-03-20 19:49 | DVHPN2 ---
Progress Note - Dictate Date Seen: Mar 20, 2025 Has the PT tested + for MRSA If YES, has PT been informed?: No Medical Necessity Reason Pt with a Central, PICC or Fol: No Subjective MsDavina Shah is a 59 years old right-handed female with a history of hypertension, diabetes, dyslipidemia, schizophrenia, anxiety, depression, bipolar disorder, chronic pain syndrome, she was brought to the [facility] on 03/18/2025 with a chief complaint of seizure activity. I have seen and examined the patient, I have talked to her nurse, she is doing fine, alert and fully oriented, no new complaints, she wants to go home UDS, 03/18/2025: Unremarkable UDS, 03/18/2025: Negative WBC/HB/PLT/MCV, 03/18/25: 5.1/11.7/196/92.6 Lactic acid, 03/18/2025: 4.8, 3.6 HCO3, 03/18/2025: 18, 23 TBI/AST/ALT/AP, 03/18/2025: 1.7/36//38, 03/19/2025: 1.9// CT head, 03/18/2025: No evidence of acute intracranial abnormality. If symptoms persist, consider MRI for further evaluation MRI head, 03/19/2025: No evidence of acute infarction, intracranial hemorrhage, mass effect or hydrocephalus. [id number] changes of chronic microvascular ischemic disease. vital signs Vital Sign Date Time Temp Pulse Resp B/P (MAP) Pulse Ox O2 Delivery O2 Flow Rate FiO2 03/20/25 17:00 97.6 97 17 131/77 (95) 98 97.6 03/20/25 08:00 Room Air* 0 21 Total Intake and Output 03/19/25 03/19/25 03/20/25 15:00 23:00 07:00 Intake Total 1800 ml 840 ml Balance 1800 ml 840 ml medications Current Medications Medications Dose Ordered Sig/Murray Route Start Time Stop Time Status Last Admin Dose Admin Nifedipine 30 mg DAILY PO 03/19/25 10:00 03/20/25 09:25 30 MG Quetiapine Fumarate 200 mg HS PO 03/18/25 22:00 03/19/25 21:53 200 MG Divalproex Sodium 500 mg DAILY PO 03/19/25 10:00 03/20/25 09:24 500 MG Gabapentin 600 mg TID PO 03/18/25 22:00 03/20/25 18:52 600 MG Hydralazine HCl 25 mg Q12HR PO 03/18/25 22:00 03/20/25 09:26 25 MG Losartan Potassium 50 mg DAILY PO 03/19/25 10:00 03/20/25 09:26 50 MG Hydrochlorothiazide 12.5 mg DAILY PO 03/19/25 10:00 03/20/25 09:25 12.5 MG Acetaminophen/ Hydrocodone Bitart 1 tab Q4HP PRN PO 03/18/25 16:45 03/19/25 17:57 1 TAB Ondansetron HCl 4 mg Q4HP PRN IV 03/18/25 16:45 Enoxaparin Sodium 40 mg DAILY SC 03/19/25 10:00 03/20/25 09:27 40 MG Acetaminophen 650 mg Q6HP PRN PO 03/18/25 16:45 Lactated Ringer's 1,000 ml @ 75 mls/hr [id number] IV 03/19/25 09:00 03/19/25 21:50 75 MLS/HR Lorazepam 1 mg Q5MINP PRN IV 03/19/25 09:45 Lorazepam 1 mg ONCE PRN IV 03/19/25 09:45 objective General: the patient is well developed and nourished. No acute distress. MENTAL STATUS: Awake and alert. Oriented to person, place, time and general circumstances. Able to give personal history. The patient is aware of recent events SPEECH, LANGUAGE, HIGHER CORTICAL FUNCTION: no aphasia or dysathria. CRANIAL NERVES: Pupils are equal, round and reactive. EOMs full and conjugate. Mild bilateral gaze evoked nystagmus. Facial sensation intact in all three divisions bilaterally. Mandibular strength intact. Facial muscles symmetrical and strength intact. Tongue midline. No fasciculations or atrophy. SENSATION: Sensation to touch and pinprick is normal. MOTOR: Normal tone in the upper and lower extremity. Normal muscle bulk. No fasciculations. No abnormal movements or posturing. Muscle strength of the major groups in the extremities is 5/5. REFLEXES: Deep tendon reflexes normal and symmetrical. No pathological reflexes. CEREBELLAR/COORDINATION: Finger to nose and heel to curry are normal bilaterally. GAIT/STATION: deferred. laboratory and microbiology Laboratory Tests 03/20/25 05:29 Test 03/20/25 05:29 Range/Units Serum Glucose 95 74-106 mg/dL Problem List New onset grand mal seizure, with no obvious trigger Chronic insomnia, likely related to her psychiatric disorder Inadequate sleep hygiene She has stopped driving for a while Assessment/Plan Monitoring Supportive treatment Telemetry EEG Continue her Depakote and gabapentin Continue her quetiapine 200 mg at bedtime Ativan for seizure breakthrough Preventive seizure treatment is not indicated Will discuss with her about seizure related driving restriction Sleep hygiene tips discussed More recommendation per clinical course This medical document was created using an electronic medical record system with [employer] dictation system. Although this document has been carefully reviewed, there may still be some phonetic and typographical errors. These areas are purely typographical due to imperfections of the software programs, and do not reflect any compromise in the patient's medical care. Prognosis poor Plan discussed with: Patient, Other Total Time (mins): 35 RADHA VALERA MD Mar 20, 2025 19:49
[2025-03-21 01:00] VITALS: BP 112/76; PULSE 103; RESP 16; TEMP 98.2; O2SAT 98
[2025-03-21 05:00] VITALS: BP 115/76; PULSE 83; RESP 12; TEMP 98; O2SAT 98
[2025-03-21 07:18] LABS: Sodium 144 mmol/L (136-145)
[2025-03-21 07:19] LABS: Anion Gap 9 (5-15); Carbon Dioxide 27 mmol/L (20-31)
[2025-03-21 07:20] LABS: Calcium 10.0 mg/dL (8.7-10.4)
[2025-03-21 07:22] LABS: Hematocrit 29.7 % (36.0-46.0); Hemoglobin 9.7 g/dL (12.2-16.2); Mean Corpuscular Hemoglobin 30.7 pg (28.0-32.0); Mean Corpuscular Volume 93.8 fL (80.0-100.0); Nucleated Red Blood Cells % 0.1 %
[2025-03-21 07:25] LABS: BUN/Creatinine Ratio 11.4 (10.0-20.0); Blood Urea Nitrogen 10 mg/dL (9-23); Glucose 104 mg/dL (74-106)
[2025-03-21 07:27] LABS: Chloride 108 mmol/L (98-107); Potassium 3.4 mmol/L (3.5-5.1)
[2025-03-21 09:30] VITALS: BP 125/82; PULSE 76; RESP 17; TEMP 98.6; O2SAT 99
[2025-03-21] MEDS: POTASSIUM CHL 20 Meq TABLET PO ONE (10:47)
[2025-03-21 13:00] VITALS: BP 141/89; PULSE 74; RESP 18; TEMP 98.4; O2SAT 99
--- NOTE | 2025-03-21 15:06 | DVHINCON2 ---
DATE OF CONSULTATION: 03/18/2025 HISTORY OF PRESENT ILLNESS: A 59-year-old -Citizen Of [place] lady known to me. She called me on 03/18/2025. Saw the patient. The patient was unable to sleep for the last few days. She had seizures, shaking, eyes rolling back, and the patient is now diagnosed with seizure-type problem. PAST MEDICAL HISTORY: Diabetes, hypertension, dyslipidemia, schizophrenia, anxiety, depression, bipolar, chronic pain syndrome. PREVIOUS SURGERY: Includes lumbar spine surgery, hernia surgery, gallbladder surgery. FAMILY HISTORY: Diabetes. SOCIAL HISTORY: No smoking. No alcohol. No drug. ALLERGIES: AMOXICILLIN, ATORVASTATIN, LISINOPRIL. MEDICATIONS: Gabapentin, Staples, morphine, hydralazine, Lyrica and Latuda. PHYSICAL EXAMINATION: GENERAL: Awake, alert, and oriented. LUNGS: Clear. HEART: Sounds regular. ABDOMEN: Soft. VASCULAR: Normal. DIAGNOSIS: New onset of grand mal seizure, chronic insomnia, inadequate sleep. The patient will be on Depakote and gabapentin and Neurology consultation. Terrence Vasquez MD MP/DEVENDRA/LUÍS TID: [id number] RECEIPT: [id number] MTDD
--- NOTE | 2025-03-21 15:14 | DVHPN ---
DATE: 03/21/2025 SUBJECTIVE: Patient seen. PHYSICAL EXAM: GENERAL: The patient is awake, alert, ambulatory. LUNGS: Clear. HEART: Sounds good. ABDOMEN: Soft. VITAL SIGNS: Vital signs are reviewed. Clinical course is reviewed. DIAGNOSES: * Seizure problem. * Hypertension. The patient is currently getting hydrochlorothiazide 12.5 mg, getting losartan 50 mg, Depakote 500 mg a day, nifedipine 30 mg, lorazepam, and gabapentin 600 mg. The patient does not want Seroquel. Outpatient followup. Terrence Vasquez MD MP/INDIA/LUÍS TID: [id number] RECEIPT: [id number] MTDD
[2025-03-21 16:22] VITALS: BP 125/82; PULSE 74; RESP 18; TEMP 98.4; O2SAT 99
--- NOTE | 2025-03-21 17:40 | DVHDSRES ---
Discharge Summary Date of Admission Resident Creating Document: MAGDI HUDDLESTON RESIDENT Mar 18, 2025 at 15:23 Date of Discharge: Mar 21, 2025 Admitting Diagnosis Seizure activity, new onset Wounds: No large wounds Labs/Diagnostic Data: Laboratory Results Test 03/21/25 05:14 03/20/25 05:29 03/19/25 12:32 03/19/25 10:59 White Blood Count 5.2 10^3/uL (4.4-10.8) Red Blood Count 3.17 10^6/uL (4.0-5.20) Hemoglobin 9.7 g/dL (12.2-16.2) Hematocrit 29.7 % (36.0-46.0) Mean Corpuscular Volume 93.8 fL (80.0-100.0) Mean Corpuscular Hemoglobin 30.7 pg (28.0-32.0) Mean Corpuscular Hemoglobin Concent 32.8 g/dL (32.0-36.0) Red Cell Distribution Width 13.2 % (11.8-14.3) Platelet Count 193 10^3/uL (140-450) Mean Platelet Volume 9.5 fL (6.9-10.8) Neutrophils (%) (Auto) 63.2 % (37.0-80.0) Lymphocytes (%) (Auto) 23.2 % (10.0-50.0) Monocytes (%) (Auto) 11.5 % (0.0-12.0) Eosinophils (%) (Auto) 1.9 % (0.0-7.0) Basophils (%) (Auto) 0.2 % (0.0-2.0) Neutrophils # (Auto) 3.3 10 ^3/uL (1.6-8.6) Lymphocytes # (Auto) 1.2 10 ^3/uL (0.4-5.4) Monocytes # (Auto) 0.6 10 ^3/uL (0-1.3) Eosinophils # (Auto) 0.1 10 ^3/uL (0-0.8) Basophils # (Auto) 0 10 ^3/uL (0-0.2) Nucleated Red Blood Cells 0.1 % Sodium Level 144 mmol/L (136-145) Potassium Level 3.4 mmol/L (3.5-5.1) Chloride Level 108 mmol/L (98-107) Carbon Dioxide Level 27 mmol/L (20-31) Anion Gap 9 (5-15) Blood Urea Nitrogen 10 mg/dL (9-23) Creatinine 0.88 mg/dL (0.550-1.02) Glomerular Filtration Rate Calc 76 mL/min (>90) BUN/Creatinine Ratio 11.4 (10.0-20.0) Serum Glucose 104 mg/dL (74-106) Calcium Level 10.0 mg/dL (8.7-10.4) Total Bilirubin 0.8 mg/dL (0.2-1.0) Aspartate Amino Transferase (AST) 26 U/L (13-40) Alanine Aminotransferase (ALT) 20 U/L (7-40) Alkaline Phosphatase 68 U/L (46-116) Total Protein 6.0 g/dL (5.7-8.2) Albumin 3.7 g/dL (3.2-4.8) Urine Color Colorless (Yellow) Urine Clarity Turbid (Clear) Urine pH 5.0 (5.0-9.0) Urine Specific [place] 1.004 (1.001-1.035) Urine Protein Negative (Negative) Urine Ketones Negative (Negative) Urine Blood Negative /uL (Negative) Urine Nitrite Negative (Negative) Urine Bilirubin Negative (Negative) Urine Urobilinogen Normal mg/dL (Negative) Urine Leukocyte Esterase Negative /uL (Negative) Urine RBC 1 /hpf (0 - 4) Urine Microscopic WBC 8 /HPF (0-5) Urine Squamous Epithelial Cells Few /hpf (<5) Urine Bacteria Mod /hpf (None Seen) Urine Mucus Few (None Seen) Urine Glucose Normal mg/dL (Normal) Hemoglobin A1c 4.7 % A1C (<5.7) Iron Level 44 ug/dL (50-170) Total Iron Binding Capacity 227 ug/dL (250-425) Percent Iron Saturation 19.4 % (15-50) Ferritin 281.1 ng/mL (10-291) B-Type Natriuretic Peptide 138.35 pg/mL (0-100) Test 03/19/25 05:41 03/18/25 23:02 03/18/25 16:26 03/18/25 13:24 Creatine Kinase 104 U/L (34-145) POC Glucose 138 mg/dl (70-106) Lactic Acid Level 2.0 mmol/L (0.4-2.0) Troponin I High Sensitivity 3 ng/L (</=34) Urine Opiates Screen Neg (NEGATIVE) Urine Fentanyl Screen Neg (NEGATIVE) Urine Barbiturates Screen Neg (NEGATIVE) Urine Phencyclidine Screen Neg (NEGATIVE) Urine Amphetamines Screen Neg (NEGATIVE) Urine Benzodiazepines Screen Neg (NEGATIVE) Urine Cocaine Screen Neg (NEGATIVE) Urine Cannabinoids Screen Neg (NEGATIVE) Test 03/18/25 12:56 Magnesium Level 1.7 mg/dL (1.6-2.6) Other Laboratory Tests 03/21/25 05:14 Brief Hx & Hospital Course: Kim Del Angel is a 59-year-old female With past medical history of schizophrenia, bipolar disorder, depression, Prediabetic, hypertension, dyslipidemia , chronic back pain. She presented to the ER with a seizure like episode. she reported she does not remember anything about the incident. Her informed her that she was shaking, her tongue hanging and her eyes rolled back. She reports biting her left lip , resulting in minor injury. reports no incontinence. She was confused after the episode, unable to recognize her for a while. She also complained of chronic insomnia. Was unable to sleep the previous night. No history of seizures in past. No history of headache, blurry vision, fever, neck rigidity, olfactory hallucination, head injury, nausea, vomiting, diarrhea. On admission, CT showed no significant abnormality. Chest x-ray revealed no acute findings. Her labs showed elevated lactic acid and total bilirubin. She was started on IV fluids and blood pressure was managed with hydrochlorothiazide, losartan, hydralazine. Her toxicology screen was negative. Neurology was consulted. An MRI done, revealed no acute findings. Her vitals are stable. Her labs are WNL. She is stable for discharge and will follow-up with primary care and Neurology closely. Discharge plan: Please follow-up with PCP in 1 week. Please follow with Neurology outpatient. Continue home medications. Consults/Reason for consult Neurology consulted, advised supportive treatment, telemetry, MRI, EEG. Continued her on Depakote, gabapentin, quetiapine. Preventive seizure treatment not indicated. Discussed seizure-related driving restrictions. Operations or Procedures MRI BRAIN HEAD WO CONTRAST INDICATION: SEIZURE EXAM DATE: 03/19/2025 09:43 AM COMPARISON: None TECHNIQUE: MRI of the brain without intravenous contrast. FINDINGS: Diffusion weighted images of the brain demonstrate no evidence of acute infarction. There is no evidence of acute intracranial hemorrhage, extra-axial collection, mass effect, midline shift, herniation or hydrocephalus. The ventricles, sulci and cisterns appear age appropriate. Mild to moderate changes of chronic microvascular ischemic disease. There are no signal abnormalities on the susceptibility weighted sequences. The major vascular flow voids are present. The visualized paranasal sinuses and mastoid air cells are clear. The surrounding soft tissues and osseous structures are unremarkable. IMPRESSION: 1. No evidence of acute infarction, intracranial hemorrhage, mass effect or hydrocephalus. [id number] changes of chronic microvascular ischemic disease. -- CT HEAD WITHOUT CONTRAST Study Date and Requested Time: 03/18/2025 01:09 PM History: SEIZURE LIKE ACTIVITY Comparison: None Dose: CTDI: 48.84 mGy DLP: 685.54 mGycm Technique: Multiplanar images obtained through the brain without intravenous contrast. Findings: Mild frontoparietal predominant brain Atrophy. Mild chronic small vessel ischemic changes. No hemorrhages, masses, mass effect, midline shift, herniation or cytotoxic edema following a large vascular territory. No intra-axial or extra-axial fluid collections. No evidence of hydrocephalus. The basal cisterns are patent. The pituitary gland, sella and parasellar regions are unremarkable. The cerebellar tonsils are in normal position. The cerebellum is unremarkable. The partially visualized orbits and globes are unremarkable. Mild mucoperiosteal thickening of the posterior ethmoid air cells. Otherwise, paranasal sinuses and mastoids are clear. There are no worrisome calvarial lesions. Impression: No evidence of acute intracranial abnormality. If symptoms persist, consider MRI for further evaluation. --- X-rayFrontal view of the chest. COMPARISON: None FINDINGS: . The heart and mediastinal contours are grossly unremarkable. There is no evidence of pleural disease. The lungs are clear. The bony structures of the chest are intact without fracture. IMPRESSION: 1. No evidence of acute disease. Condition at Discharge: Stable Final Diagnosis/Problems List New onset seizure, unprovoked, solitary event, due to below likely: Chronic insomnia, likely related to her psychiatric disorder Inadequate sleep hygiene Lactic acidosis, resolved Chronic insomnia Hypertension Hyperbilirubinemia Normocytic normochromic anemia, unspecified History of bipolar disorder History of depression History of schizophrenia Anemia, unspecified Discharge Disposition: Home Discharge Instruct/Medications Diet: Cardiac 2g Na,low cholest Activity: No Restrictions, As Tolerated Follow Up/Referral: Please follow with PCP in 1 week. Please follow-up with Neurology outpatient for EEG. Medications: Please continue home medication. Care Plan: Please follow-up with PCP in 1 week. Please follow with Neurology outpatient. Continue home medications. Scheduled Gabapentin (Gabapentin), 600 MG PO TID, (Reported) Hydralazine Hcl (Hydralazine Hcl), 10 MG PO TID, (Reported) Hydrocodone-Acetaminophen ([place] 10-325 mg), 1 TAB PO TID, (Reported) Lurasidone Hcl (Latuda), 1 TAB PO HS, (Reported) Morphine Sulfate (Morphine Sulfate), 1 TAB PO BID, (Reported) Pregabalin (Lyrica), 1 CAP PO BID, (Reported) Discharge Statement: "Patient was advised to return to the ER or call 911 if any headaches, dizziness, shortness of breath, chest pain, abdominal pain, bleeding, fevers, or worsening of medical condition. Patient was counseled about treatment plan, medications, possible side effects, patientverbalized understanding. All questions were answered to the best of my ability. This discharge took greater then 30 minutes in planning, reviewing documentation, counseling the patient, and discussing with other team members." ASSESSMENT ASSESSMENT Assessment New onset seizure, unprovoked, solitary event, due to below likely: Chronic insomnia, likely related to her psychiatric disorder Inadequate sleep hygiene Lactic acidosis, resolved Chronic insomnia Hypertension Hyperbilirubinemia Normocytic normochromic anemia, unspecified History of bipolar disorder History of depression History of schizophrenia Anemia, unspecified Date of Service: Mar 21, 2025 Billing Provider: SEPIDEH VALDEZ MD Common Visit Codes: 21462-UWR/OBS DISCH DAY >30min MAGDI HUDDLESTON RESIDENT Mar 21, 2025 17:40 SEPIDEH VALDEZ MD Mar 24, 2025 21:52
--- NOTE | 2025-03-21 23:45 | DVHPN2 ---
Progress Note - Dictate Date Seen: Mar 19, 2025 Has the PT tested + for MRSA If YES, has PT been informed?: No Medical Necessity Reason Pt with a Central, PICC or Fol: No Subjective Patient was seen and evaluated in follow up. The patient is oriented x3 today. She does not recall any of the events prior to coming to the hospital. Patient is complaining of generalized pain and tenderness. MRI brain is pending. vital signs Vital Sign Date Time Temp Pulse Resp B/P (MAP) Pulse Ox O2 Delivery O2 Flow Rate FiO2 03/21/25 16:22 98.4 74 18 99 03/21/25 13:00 141/89 (106) 03/21/25 08:10 Room Air* 0 21 Total Intake and Output 03/20/25 03/20/25 03/21/25 15:00 23:00 07:00 Intake Total 900 ml 100 ml Balance 900 ml 100 ml objective LUNGS: Clear. HEART: Sounds regular. ABDOMEN: Soft. VASCULAR: Normal. laboratory and microbiology Laboratory Tests 03/21/25 05:14 Test 03/21/25 05:14 Range/Units Serum Glucose 104 74-106 mg/dL Problem List New onset of grand mal seizure. Chronic insomnia. Inadequate sleep. Hypertension. Assessment/Plan Continued all current supportive medical care. Follow up on MRI brain. DVT prophylactics. Hydralazine, HCTZ, Losartan, Nifedipine. Depakote. Additional plan as per the hospital course. Dietary Evaluation Review Comments: 1) Continue cardiac diet 2) Encourage optimal PO intake 3) Follow-up with psychiatry and neurology 4) Continue to monitor I&O, labs, and skin integrity Expected Outcomes/Goals: 1) appetite and labs to improve 2) f/u in 3-5 days Plan discussed with: Patient CLARK HARDY MD Mar 21, 2025 23:45
--- NOTE | 2025-03-21 23:48 | DVHPN2 ---
Progress Note - Dictate Date Seen: Mar 20, 2025 Has the PT tested + for MRSA If YES, has PT been informed?: No Medical Necessity Reason Pt with a Central, PICC or Fol: No Subjective Patient was seen and evaluated in follow up. Patient reports felling better today. MRI brain shows no evidence of acute infarction, intracranial hemorrhage, mass effect or hydrocephalus. [id number] changes of chronic microvascular ischemic disease. Neuro recommended for EEG. vital signs Vital Sign Date Time Temp Pulse Resp B/P (MAP) Pulse Ox O2 Delivery O2 Flow Rate FiO2 03/21/25 16:22 98.4 74 18 99 03/21/25 13:00 141/89 (106) 03/21/25 08:10 Room Air* 0 21 Total Intake and Output 03/20/25 03/20/25 03/21/25 15:00 23:00 07:00 Intake Total 900 ml 100 ml Balance 900 ml 100 ml objective LUNGS: Clear. HEART: Sounds regular. ABDOMEN: Soft. VASCULAR: Normal. laboratory and microbiology Laboratory Tests 03/21/25 05:14 Test 03/21/25 05:14 Range/Units Serum Glucose 104 74-106 mg/dL Problem List New onset of grand mal seizure. Chronic insomnia. Inadequate sleep. Hypertension. Lactic acidosis, resolved. Hyperbilirubinemia. Normocytic normochromic anemia, unspecified. History of bipolar disorder. History of depression. History of schizophrenia. Assessment/Plan Continued all current supportive medical care. DVT prophylactics. Hydralazine, HCTZ, Losartan, Nifedipine. Depakote. Additional plan as per the hospital course. Dietary Evaluation Review Comments: 1) Continue cardiac diet 2) Encourage optimal PO intake 3) Follow-up with psychiatry and neurology 4) Continue to monitor I&O, labs, and skin integrity Expected Outcomes/Goals: 1) appetite and labs to improve 2) f/u in 3-5 days Plan discussed with: Patient CLARK HARDY MD Mar 21, 2025 23:48
--- NOTE | 2025-03-21 23:49 | DVHPN2 ---
Progress Note - Dictate Date Seen: Mar 21, 2025 Has the PT tested + for MRSA If YES, has PT been informed?: No Medical Necessity Reason Pt with a Central, PICC or Fol: No Subjective Patient was seen and evaluated in follow up. Patient has no new complaints at this time. Patient denies any cardiac symptoms. Patient is cardiac stable for discharge. vital signs Vital Sign Date Time Temp Pulse Resp B/P (MAP) Pulse Ox O2 Delivery O2 Flow Rate FiO2 03/21/25 16:22 98.4 74 18 99 03/21/25 13:00 141/89 (106) 03/21/25 08:10 Room Air* 0 21 Total Intake and Output 03/20/25 03/20/25 03/21/25 15:00 23:00 07:00 Intake Total 900 ml 100 ml Balance 900 ml 100 ml objective LUNGS: Clear. HEART: Sounds regular. ABDOMEN: Soft. VASCULAR: Normal. laboratory and microbiology Laboratory Tests 03/21/25 05:14 Test 03/21/25 05:14 Range/Units Serum Glucose 104 74-106 mg/dL Problem List New onset of grand mal seizure. Chronic insomnia. Inadequate sleep. Hypertension. Lactic acidosis, resolved. Hyperbilirubinemia. Normocytic normochromic anemia, unspecified. History of bipolar disorder. History of depression. History of schizophrenia. Assessment/Plan Continued all current supportive medical care. DVT prophylactics. Hydralazine, HCTZ, Losartan, Nifedipine. Depakote. Additional plan as per the hospital course. Dietary Evaluation Review Comments: 1) Continue cardiac diet 2) Encourage optimal PO intake 3) Follow-up with psychiatry and neurology 4) Continue to monitor I&O, labs, and skin integrity Expected Outcomes/Goals: 1) appetite and labs to improve 2) f/u in 3-5 days Plan discussed with: Patient CLARK HARDY MD Mar 21, 2025 23:49
== END 2025-03-21 16:58 | disposition home or self-care (01) | DRG 101 ==
LOC: EDBD 12:08 → ER 12:15 → OVERFLOW 15:23 → EAST 17:07
PROVIDERS: ADMIT Student in an Organized Health Care Education/Training Program; ATTEND Student in an Organized Health Care Education/Training Program
DX: G40.409 Other generalized epilepsy and epileptic syndromes, not intractable, without status epilepticus (principal); E87.20 Acidosis, unspecified; I10 Essential (primary) hypertension; E80.6 Other disorders of bilirubin metabolism; F51.04 Psychophysiologic insomnia; D64.9 Anemia, unspecified; E11.9 Type 2 diabetes mellitus without complications; G89.4 Chronic pain syndrome; F20.9 Schizophrenia, unspecified; F31.9 Bipolar disorder, unspecified; E78.5 Hyperlipidemia, unspecified; F41.9 Anxiety disorder, unspecified; Z90.49 Acquired absence of other specified parts of digestive tract; Z83.3 Family history of diabetes mellitus; Z82.49 Family history of ischemic heart disease and other diseases of the circulatory system; Z80.1 Family history of malignant neoplasm of trachea, bronchus and lung; Z88.0 Allergy status to penicillin; Z79.899 Other long term (current) drug therapy
CPT/HCPCS: 36415; 70450; 70551; 71045; 80048; 80053; 80307; 81001; 82550; 82728; 82962; 83036; 83540; 83550; 83605; 83735; 83880; 84484; 85025; 93005; 96360; G0378; J1885